=== PATIENT | male | born 1965 | race Caucasian/White ===

== ENCOUNTER 2019-05-30 13:00 | Outpatient (RCR) | payer OTHER, SELFPAY | END 2019-06-06 13:58 | disposition home or self-care (01) | LOC: OT 13:00 | PROVIDERS: Visit Provider Orthopaedic Surgery Orthopaedic Trauma | DX: S52.509A Unspecified fracture of the lower end of unspecified radius, initial encounter for closed fracture (principal) | CPT/HCPCS: 97014; 97110; 97140; 97166; G0283 ==

== ENCOUNTER 2019-11-24 13:00 | Outpatient (RCR) | payer OTHER, SELFPAY | END 2019-11-24 14:30 | disposition home or self-care (01) | LOC: PT.CARL 13:00 | PROVIDERS: Visit Provider Orthopaedic Surgery Orthopaedic Trauma | DX: S52.501A Unspecified fracture of the lower end of right radius, initial encounter for closed fracture (principal) | CPT/HCPCS: 97010; 97018; 97033; 97110; 97140; 97163 ==

== ENCOUNTER 2020-07-24 09:20 | Emergency (ER) | payer MEDICAID, SELFPAY ==
[2020-07-24 09:36] VITALS: BP 141/93; PULSE 79; RESP 18; TEMP 37.1; O2SAT 99; BMI 22.4
--- NOTE | 2020-07-24 09:44 | HMH.EDUTC ---
[facility] [place] Clinical Impression: Encounter for laboratory testing for COVID-19 virus Sinusitis Qualifiers: Sinusitis location: unspecified location Chronicity: unspecified Qualified Code(s): J32.9 - Chronic sinusitis, unspecified Disposition: Home, Self-Care Condition on Discharge: Good Instructions: Sinusitis, Sinus Headache, DI for Sinusitis Additional Instructions: *Monitor Temp, Over the counter Motrin or Tylenol as directed/as needed Tylenol every 4 hours and Motrin every 6 hours (as long as your family doctor has told you that you can take it) for fever or pain. and straight to ER if unable to lower temp less than 101.0 after medication given *Warm salt water gargles may help to soothe the throat *Throat Lozenges *Warm fluids like tea with honey may help to soothe the throat *Sleep elevated *Humidifier/Vaporizer *Flonase 2 sprays in each nostril daily but be aware that it may take 2-3 days before you notice improvement Take medication as prescribed Follow up IMMEDIATELY for new or worsening symptoms or no Noticeable improvement over the next 48-72 hours. 911 for difficulty breathing or swallowing You was tested for today for COVID19 your test result should be back in the next 24-48 hours, you may call to the [facility] tomorrow to see if your test results are back and the result [phone] You was given a handout with instructions for Self Quarantine and Self isolation for while you wait on test results and what to do if they are positive If you are positive the Health Dept will be contacting you also Prescriptions: predniSONE [Deltasone 10mg tablet] 10 mg PO BID 4 Days #8 tab Transmission Status: Pending to [facility] Fluticasone Propionate [Flonase 50mcg nasal spray 16gm] 1 spr NS DAILY #1 bottle Transmission Status: Pending to [facility] Azithromycin [Z-Ganesh 250mg Tab] 250 mg PO DIRECTED #6 tab Transmission Status: Pending to [facility] Referrals: PCP,No [Primary Care Provider] - As needed Forms: Work/School Release Time of Disposition: 09:51 Medical Decision Making - Alno Inquiry Pt receiving controlled substance: No Alon was queried for this patient: No Vital Signs: 07/24/20 09:36 Temperature 98.7 F Temperature Source Oral Pulse Rate [Left] 79 Respiratory Rate 18 Blood Pressure [Right Arm] 141/93 H Blood Pressure Mean [Right Arm] 109 Blood Pressure Source [Right Arm] Automatic Cuff Blood Pressure Position [Right Arm] Sitting 02 Sat by Pulse Oximetry 99 Oxygen Delivery Method Room Air [facility] - General Stated complaint: covid test Time Seen by Provider: 07/24/20 09:44 Mode of Arrival: Ambulatory Source of Information: Patient Limitations: No Limitations Description of Symptoms (Recalled from Triage Doc. by RN): Fatigue, diarrhea, body aches x 3 days HEENT Symptoms (Recalled from RN notes): No Resp Symptoms (Recalled from RN notes): No Skin Symptoms (Recalled from RN notes): No MS Symptoms (Recalled from RN notes): No Functional Status (Recalled from RN notes): stable - History of Present Illness Provider Complaint: Patient state that he has been having sinus pain and pressure for over a week with yellowish green mucous States that he has been around several people that have been sick but unsure if they have had covid or not States that for the last three days he has had diarrhea and wanted to get checked for COVID - Related Data Previous Rx's Medication Instructions Recorded Azithromycin [Z-Ganesh 250mg Tab] 250 mg PO DIRECTED #6 tab 07/24/20 Fluticasone Propionate [Flonase 1 spr NS DAILY #1 bottle 07/24/20 50mcg nasal spray 16gm] predniSONE [Deltasone 10mg tablet] 10 mg PO BID 4 Days #8 tab 07/24/20 Allergies Allergy/AdvReac Type Severity Reaction Status Date / Time No Known Allergies Allergy Verified 07/24/20 09:41 - Worker's Comp Is this a Worker's Comp case?: No Is this an [facility] Worker's Comp?: No Is this a [place]
[2020-07-24 09:52] VITALS: BP 141/93; PULSE 83; RESP 18; TEMP 37.1; O2SAT 99
[2020-07-25 20:31] LABS: Covid-19 Nasal PCR Sendout Lex Not Detected
== END 2020-07-24 09:54 | disposition home or self-care (01) ==
PROVIDERS: Emergency Provider Nurse Practitioner
DX: Z20.828 Contact with and (suspected) exposure to other viral communicable diseases (principal); J32.9 Chronic sinusitis, unspecified
CPT/HCPCS: 99201; U0004

== ENCOUNTER → 2021-04-08 08:23 | Outpatient (CLI) | payer SELFPAY ==
--- NOTE | 2021-04-08 08:49 | US_ITS ---
PROCEDURE: US GALLBLADDER CLINICAL INDICATION: GALLSTONES COMPARISON: CT ABDPELW CT ABD PELVIS W/ CONTRAST from 01/18/2016 US RUQ US RUQ-(ABD LTD)1ORGAN/QUAD/FU from 02/08/2016 FINDINGS: Pancreas: Body and head of the pancreas appear unremarkable on the images submitted. The tail of the pancreas is not well demonstrated. Liver: Unremarkable. There is appropriate direction of blood flow within a non dilated portal vein. Right kidney: Unremarkable appearing. No hydronephrosis. Gallbladder: Gallbladder is elongated measuring 8 cm. Gallstones are present. There is a small hyperechoic focus along the anterior aspect of the gallbladder wall measuring 3 mm and may be due to a small polyp. Gallbladder wall is slightly prominent. No pericholecystic fluid is evident. At 4 mm. Common bile duct normal at 3 mm. IMPRESSION: Cholelithiasis. Mildly thickened gallbladder wall. Possible small gallbladder polyp. Dictated by: Jaime Maldonado MD 04/08/2021 09:43 Jaime Maldonado MD in [place] 04/08/2021 09:43
== END ==
PROVIDERS: PCP Internal Medicine Adolescent Medicine; Visit Provider Internal Medicine Adolescent Medicine
DX: K80.20 Calculus of gallbladder without cholecystitis without obstruction (principal)
CPT/HCPCS: 76705

== ENCOUNTER → 2021-04-25 13:06 | Outpatient (CLI) | payer OTHER, SELFPAY ==
[2021-04-25 13:37] LABS: Basophils % 0.5 % (0.1-2.0); Eosinophils # 0.3 K/mm3 (0.0-0.4); Eosinophils % 3.6 % (0.1-12.0); Hematocrit 34.1 % (42.0-52.0); Hemoglobin 11.6 g/dL (14.1-18.0); Lymphocytes # 1.7 K/mm3 (0.7-4.5); Lymphocytes % 21.9 % (10-50); Mean Corpuscular HGB Conc 34.1 g/dL (31.8-35.4); Mean Corpuscular Hemoglobin 32.7 pg (27.0-31.2); Mean Corpuscular Volume 96.1 fl (80-94); Mean Platelet Volume 9.3 fl (7.4-10.4); Monocytes # 0.5 K/mm3 (0.1-1.0); Monocytes % 6.4 % (1.7-9.3); Neutrophils # 5.2 K/mm3 (1.8-7.8); Neutrophils % 67.5 % (37.0-80.0); Platelet Count 157 K/mm3 (142-424); Red Blood Count 3.54 M/mm3 (4.60-6.20); Red Cell Distribution Width 14.6 % (11.5-17.5); White Blood Count 7.7 K/mm3 (4.8-10.8)
[2021-04-25 13:52] LABS: INR 1.04 (0.9-1.1); Prothrombin Time 12.2 seconds (10.1-12.5)
[2021-04-25 13:55] LABS: Alanine Aminotransferase 213 U/L (12-78); Albumin Level 3.6 g/dl (3.5-5.0); Albumin/Globulin Ratio 1.2 (1.1-1.8); Alkaline Phosphatase 135 U/L (38-126); Amylase 45 U/L (30-110); Anion Gap 10.2 mEq/L (5-15); Aspartate Amino Transferase 162 U/L (17-59); Bilirubin,Total 0.5 mg/dl (0.2-1.3); Blood Urea Nitrogen 20 mg/dl (9-20); Calcium 8.7 mg/dl (8.4-10.2); Carbon Dioxide 33 mmol/L (22.0-30.0); Chloride 102 mmol/L (98-107); Estimated Glomerular Filt Rate 117 ml/min (>60); GFR (African American) 142 ML/MIN (>60); Globulin 3.1 g/dL (1.3-3.2); Glucose 84 mg/dl (74-100); Lipase 243 U/L (23-300); Potassium 4.2 mmoL/L (3.5-5.1); Sodium 141 mmol/L (136-145); Total Protein,Serum 6.7 g/dl (6.3-8.2)
[2021-04-30 11:38] LABS: HCV Genotype Charge YES; Hepatitis C Genotype 3 (.)
== END ==
PROVIDERS: Visit Provider Surgery
DX: R10.9 Unspecified abdominal pain (principal)
CPT/HCPCS: 36415; 80053; 82150; 83690; 85025; 85610; 87522; 87902

== ENCOUNTER → 2021-04-26 09:06 | Outpatient (CLI) | payer OTHER, SELFPAY ==
--- NOTE | 2021-04-26 09:07 | CT_ITS ---
PROCEDURE: CT ABDOMEN PELVIS W CON CLINICAL INDICATION: abdominal pain Epigastric pain and vomiting COMPARISON: CT ABDPELW CT ABD PELVIS W/ CONTRAST from 01/18/2016 TECHNIQUE: IV Contrast: 75ML Isovue 370 Oral Contrast None Axial images obtained with sagittal and coronal reformats. All CT scans at the facility use one or more dose reduction, viz: automated exposure control, ma/kV adjustment per patient size (including targeted exams where dose is matched to indication, i.e. head), or iterative reconstruction technique. FINDINGS: LOWER THORAX: No acute finding ABDOMEN & PELVIS: No focal liver lesion. Mild splenomegaly with a maximum AP dimension 14 cm. Gallstones are present with mild gallbladder wall thickening. No biliary dilatation. The adrenal glands, the adrenal glands and pancreas are unremarkable. No renal calculi or hydronephrosis. There is a small right renal cyst posteriorly at 1 cm. No intestinal obstruction or free air. There is a mild amount of retained colonic feces. The appendix is not clearly delineated. No evidence of appendicitis. No pelvic mass. Central coarse prostate calcifications are noted. No acute bony findings. IMPRESSION: 1. Mild splenomegaly 2. Cholelithiasis with mild gallbladder wall thickening. Dictated by: Jaime Maldonado MD 04/27/2021 09:41 Jaime Maldonado MD in [place] 04/27/2021 09:41
== END ==
PROVIDERS: PCP Internal Medicine Adolescent Medicine; Visit Provider Surgery
DX: R10.9 Unspecified abdominal pain (principal)
CPT/HCPCS: 74177; Q9967

== ENCOUNTER 2021-04-29 20:01 | Emergency (ER) | payer OTHER, SELFPAY ==
[2021-04-29 19:53] VITALS: BP 185/110; PULSE 53; RESP 12; TEMP 36.8; O2SAT 99; BMI 24.5
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
[2021-04-29 20:52] LABS: Microscopic, Urine URINE MICROSCOPIC (MICROSCOPIC)
--- NOTE | 2021-04-29 21:12 | HMH.EDAMS ---
ED Disposition Clinical Impression: Opiate use Disposition: Left Against Medical Advice Condition on Discharge: Fair Instructions: DI for Altered Mental Status Additional Instructions: call pcp in am Referrals: Provider,Referral, [Primary Care Provider] - - Critical Care Critical Care Time: No Attestation: On 04/29/21, the high probability of a clinically significant, sudden or life threatening deterioration of the following system(s) required my full and direct attention, intervention and personal management. The time I documented below is in addition to time spent performing reported procedures but includes the following listed in this critical care notation. Medical Decision Making - Medical Records Medical records reviewed: Yes: I reviewed the patient's medical records. - Alon Inquiry Pt receiving controlled substance: No Vital Signs: 04/29/21 19:53 Temperature 98.3 F Temperature Source Oral Pulse Rate [Right] 53 L Respiratory Rate 12 Blood Pressure [Right Arm] 185/110 H Blood Pressure Mean [Right Arm] 135 02 Sat by Pulse Oximetry 99 - Lab Data Lab results reviewed: Yes: I reviewed the patient's lab results. Lab Results 04/29/21 20:15: Urine Color Straw, Urine Appearance Clear, Urine pH 8.0, Ur Specific [place] 1.020, Urine Protein Negative, Urine Glucose (UA) Negative, Urine Ketones Negative, Urine Blood Trace-i, Urine Nitrate Negative, Urine Bilirubin Negative, Urine Urobilinogen 0.2, Ur Leukocyte Esterase Negative, Urine RBC None, Urine WBC Occasional, Ur Squamous Epith Cells Occasional, Urine Bacteria None 04/29/21 20:15: Urine Opiates Screen Negative, Urine Methadone Screen Negative, Ur Barbituates Screen Negative, Ur Phencyclidine Scrn Negative, Ur Amphetamines Screen Negative, U Benzodiazepines Scrn Negative, Urine Cocaine Screen Negative, U Marijuana (THC) Screen Positive H 04/29/21 21:36: WBC 11.2 H, RBC 3.94 L, Hgb 12.6 L, Hct 37.9 L, MCV 96.0 H, MCH 31.9 H, MCHC 33.2, RDW 14.9, Plt Count 206, MPV 8.9, Neut % (Auto) 79.6, Lymph % (Auto) 13.8, Co[place] % (Auto) 4.9, Eos % (Auto) 1.2, Baso % (Auto) 0.5, Neut # (Auto) 8.9 H, Lymph # (Auto) 1.6, [place] # (Auto) 0.6, Eos # (Auto) 0.1, Baso # (Auto) 0.1 04/29/21 21:36: Sodium 138, Potassium 3.7, Chloride 102, Carbon Dioxide 26, Anion Gap 13.7, BUN 15, Creatinine 0.60 L, Estimated Creat Clear 136, Estimated GFR 140, Est GFR ( Amer) 169, Glucose 168 H, Calcium 8.7, Total Bilirubin 0.5, AST 205 H, ALT 264 H, Alkaline Phosphatase 123, Total Protein 7.6, Albumin 4.0, Globulin 3.6 H, Albumin/Globulin Ratio 1.1, Salicylates < 1.0 L, Acetaminophen < 10 L 04/29/21 21:36: Plasma/Serum Alcohol < 10 Result diagrams: 04/29/21 21:36 04/29/21 21:36 Orders (Tests/Meds): ED MEDICATIONS Generic Name Dose Route Start Last Admin Trade Name Freq PRN Reason Stop Dose Admin Sodium Chloride 1,000 mls @ 999 mls/hr 04/29/21 20:45 04/29/21 20:33 Sod Chlor 0.9% 1000ml Bag IV 04/29/21 21:45 999 mls/hr .Q1H1M DUSTIN Administration Discontinued Medications Generic Name Dose Route Start Last Admin Trade Name Freq PRN Reason Stop Dose Admin Naloxone HCl 2 mg 04/29/21 20:29 04/29/21 20:33 Naloxone 2mg/2ml Syringe IV 04/29/21 20:30 2 mg ONCE ONE Administration Naloxone HCl 2 mg 04/29/21 20:31 04/29/21 20:33 Naloxone 2mg/2ml Syringe IV 04/29/21 20:32 2 mg ONCE ONE Administration Naloxone HCl 2 mg 04/29/21 20:31 04/29/21 20:33 Naloxone 2mg/2ml Syringe IV 04/29/21 20:32 2 mg ONCE ONE Administration ORDERS Category Date Time Status Troponin I Q3H Lab 04/30/21 00:45 Ordered Troponin I Q3H Lab 04/30/21 03:45 Ordered Troponin I Stat Lab 04/29/21 21:36 Received 12-lead EKG Request [ECG Request by /Jill] Stat Y 04/29/21 21:41 Ordered - Radiology Data #1 Image(s): Chest Image Reviewed: Yes I reviewed the patient's radiology image Preliminary Findings: Normal/NAD - ECG Data Tracing #1 Jasmin
[2021-04-29 21:18] LABS: Appearance,Urine CLEAR (Clear); Bilirubin,Urine Negative (Negative); Blood, Urine TRACE-I (Negative); Color,Urine STRAW (Yellow); Glucose,Urine (UA) Negative (Negative); Ketones,Urine Negative (Negative); Leukocyte Esterase,Urine Negative (Negative); Nitrate,Urine Negative (Negative); Protein,Urine Negative (Negative); Urobilinogen,Urine 0.2 EU/dl (0.2)
[2021-04-29 21:28] LABS: Barbiturates Screen,Urine Negative ng/ml (<200)
[2021-04-29 21:29] LABS: Amphetamine/Metha Screen,Urine Negative ng/ml (<1000); Benzodiazepines Screen,Urine Negative ng/ml (<200); Squamous Epithelial Cell,Urine Occasional #/hpf (0-5); WBC,Urine Occasional #/hpf (0-3)
[2021-04-29 21:30] LABS: Cannabinoid Screen,Urine Positive ng/ml (<50)
[2021-04-29 21:31] LABS: Cocaine Screen,Urine Negative ng/ml (<300); Methadone Screen,Urine Negative ng/ml (<300)
[2021-04-29 21:32] LABS: Opiate Screen,Urine Negative ng/ml (<300); Phencyclidine Screen,Urine Negative ng/ml (<25)
[2021-04-29 21:56] LABS: Basophils # 0.1 K/mm3 (0-0.2); Basophils % 0.5 % (0.1-2.0); Eosinophils # 0.1 K/mm3 (0.0-0.4); Eosinophils % 1.2 % (0.1-12.0); Hematocrit 37.9 % (42.0-52.0); Hemoglobin 12.6 g/dL (14.1-18.0); Lymphocytes # 1.6 K/mm3 (0.7-4.5); Lymphocytes % 13.8 % (10-50); Mean Corpuscular HGB Conc 33.2 g/dL (31.8-35.4); Mean Corpuscular Hemoglobin 31.9 pg (27.0-31.2); Mean Platelet Volume 8.9 fl (7.4-10.4); Monocytes # 0.6 K/mm3 (0.1-1.0); Monocytes % 4.9 % (1.7-9.3); Neutrophils # 8.9 K/mm3 (1.8-7.8); Neutrophils % 79.6 % (37.0-80.0); Platelet Count 206 K/mm3 (142-424); Red Blood Count 3.94 M/mm3 (4.60-6.20); Red Cell Distribution Width 14.9 % (11.5-17.5); White Blood Count 11.2 K/mm3 (4.8-10.8)
--- NOTE | 2021-04-29 21:59 | ECG_ITS ---
APPROVED REPORT Exam: Resting ECG HR:51 bpm ECG Measurements Heart Rate 51 AXES [place] 132 P 81 QRSd 86 QRS 9 QT 464 T 66 QTc 427 Conclusion Sinus bradycardia with premature atrial complexes Nonspecific T wave abnormality Abnormal ECG Electronically signed by : Eliezer Barakat MD 05/01/2021 11:47:34
[2021-04-29 22:03] LABS: Alanine Aminotransferase 264 U/L (12-78); Albumin/Globulin Ratio 1.1 (1.1-1.8); Alkaline Phosphatase 123 U/L (38-126); Anion Gap 13.7 mEq/L (5-15); Aspartate Amino Transferase 205 U/L (17-59); Bilirubin,Total 0.5 mg/dl (0.2-1.3); Blood Urea Nitrogen 15 mg/dl (9-20); Calcium 8.7 mg/dl (8.4-10.2); Carbon Dioxide 26 mmol/L (22.0-30.0); Chloride 102 mmol/L (98-107); Creatinine Clearance Estimated 136 mL/min (50-200); Estimated Glomerular Filt Rate 140 ml/min (>60); GFR (African American) 169 ML/MIN (>60); Globulin 3.6 g/dL (1.3-3.2); Glucose 168 mg/dl (74-100); Potassium 3.7 mmoL/L (3.5-5.1); Sodium 138 mmol/L (136-145); Total Protein,Serum 7.6 g/dl (6.3-8.2)
[2021-04-29 22:23] LABS: Acetaminophen < 10 ug/ml (10-30); Ethyl Alcohol < 10 mg/dl (0-10); Salicylate < 1.0 mg/dL (2.0-20.0)
[2021-04-29 22:38] VITALS: BP 157/98; PULSE 57; RESP 20; TEMP 36.8; O2SAT 97
[2021-04-29 22:44] LABS: Troponin I < 0.01 ng/ml (0.00-0.034)
== END 2021-04-29 22:39 | disposition left against medical advice (07) ==
PROVIDERS: Emergency Medicine; Emergency Provider Emergency Medicine
DX: F11.10 Opioid abuse, uncomplicated (principal); F17.210 Nicotine dependence, cigarettes, uncomplicated
CPT/HCPCS: 71045; 80053; 80305; 80329; 81001; 84484; 85025; 93005; 96365; 96375; 99283; J2310